=== PATIENT | female | born 1965 | race Two or more races ===

== ENCOUNTER → 2022-10-17 13:26 | Outpatient (BNVA) | payer OTHER, SELFPAY | PROVIDERS: PCP Internal Medicine; Visit Provider Physician Assistant Surgical ==

== ENCOUNTER → 2022-11-06 13:05 | Outpatient (BNVA) | payer OTHER, SELFPAY | PROVIDERS: PCP Internal Medicine; Visit Provider Physician Assistant Surgical | DX: E66.9 Obesity, unspecified (principal); Z68.35 Body mass index [BMI] 35.0-35.9, adult | CPT/HCPCS: 99202 ==

== ENCOUNTER → 2022-11-15 14:50 | Outpatient (BNVA) | payer OTHER, SELFPAY | PROVIDERS: PCP Internal Medicine; Visit Provider Counselor Mental Health ==

== ENCOUNTER 2022-11-19 09:25 | Outpatient (REF) | payer OTHER, SELFPAY ==
--- NOTE | ~2022-11-19 | XR_ITS ---
EXAMINATION: XR CHEST CLINICAL INFORMATION: Obesity COMPARISON: None available. TECHNIQUE: 2 views of the chest were obtained. FINDINGS: The cardiac and mediastinal contours are normal. There is minimal linear subsegmental atelectasis or scarring at the left lung base. The lungs are otherwise clear. No pleural effusion or pneumothorax. Degenerative changes of the spine. XR/XR chest 2V IMPRESSION: Linear scarring or subsegmental atelectasis at the left lung base.
[2022-11-19 09:49] LABS: MANUAL DIFF FLAG NO
--- NOTE | 2022-11-19 09:56 | ECG_ITS ---
Test Reason : OBESITY Blood Pressure : / mmHG Vent. Rate : 080 BPM Atrial Rate : 080 BPM P-R Int : 160 ms QRS Dur : 074 ms QT Int : 398 ms P-R-T Axes : 048 -19 027 degrees QTc Int : 459 ms Normal sinus rhythm Nonspecific ST and T wave abnormality Borderline ECG No previous ECGs available Referred By: William Almanza Electronically Signed By:FRANCISCO BASURTO
[2022-11-19 10:22] LABS: Basophils Percent Auto 0.4 % (0-2); Eosinophils Absolute Auto 0.3 X10*3/uL (0.0-0.4); Eosinophils Percent Auto 4.3 % (0-4); Hematocrit 39.6 % (37.0-47.0); Hemoglobin 13.4 g/dl (12.0-16.0); Imm Gran Abs Auto 0.02 X10*3/uL (0.00-0.03); Imm Gran Pct Auto 0.3 % (0.0-0.4); Lymphocytes Absolute Auto 2.9 X10*3/uL (1.2-4.9); Lymphocytes Percent Auto 36.8 % (20-40); Mean Corpuscular HGB Conc 33.8 g/dl (31.0-35.0); Mean Corpuscular Hemoglobin 30.5 pg (27.0-33.0); Mean Platelet Volume 9.3 fL (9.4-12.3); Monocytes Absolute Auto 0.6 X10*3/uL (0.1-1.2); Monocytes Percent Auto 7.2 % (2-11); Platelet Count 276 X10*3/uL (160-400); Red Cell Distribution Width 11.6 % (11.0-16.0); White Blood Count 7.9 X10*3/uL (4.8-10.8)
[2022-11-19 10:34] LABS: Estimated Average Glucose 143 mg/dL; Hemoglobin A1c % 6.6 %
[2022-11-19 11:12] LABS: Alanine Aminotransferase 25 U/L (0-31); Albumin Level 4.3 g/dL (3.5-5.0); Alkaline Phosphatase 56 U/L (39-117); Anion Gap 15 (12-20); Aspartate Amino Transferase 21 U/L (5-31); Bilirubin Total 0.4 mg/dL (0.0-1.0); Blood Urea Nitrogen 15 mg/dL (9-16); C Reactive Protein 0.57 mg/dL (< or = 0.50); Calcium 9.6 mg/dL (8.4-10.2); Carbon Dioxide 24 mmol/L (22-29); Chloride 103 mmol/L (96-108); Cholesterol 220 mg/dL; Estimated Glomerular Filt Rate > 60; Glucose Random 147 mg/dL (60-115); HDL Cholesterol 62 mg/dL; Iron 113 mcg/dL (30-160); LDL Cholesterol Calculated 117 mg/dl; Percent Iron Saturation 38 % (15-50); Potassium 4.4 mmol/L (3.3-5.1); Sodium 138 mmol/L (135-145); Total Iron Binding Capacity 297 mcg/dL (228-428); Total Protein 7.2 g/dL (6.5-8.0); Triglycerides 206 mg/dL; Unsaturated Iron Binding 184 ug/dL
[2022-11-19 11:27] LABS: Ferritin 147 ng/mL (10-250); Folate 16.5 ng/mL (> or = 4.0); Insulin 9 uU/mL (2-29); TSH reflex Free T4 1.65 uIU/mL (0.32-4.0); Vitamin B12 277 pg/mL (200-900); Vitamin D 25-OH Total 12.2 ng/mL (>30)
[2022-11-20 14:09] LABS: Calcium (PTHI) 9.3 mg/dL (8.6-10.4); PTHI 33 pg/mL (16-77)
[2022-11-26 14:33] LABS: Vitamin B1 <6 nmol/L (8-30)
[2022-11-26 15:19] LABS: Zinc 81 mcg/dL (60-130)
[2022-11-27 11:43] LABS: Vitamin A 45 mcg/dL (38-98)
== END 2022-11-19 09:26 | disposition home or self-care (01) ==
LOC: HO.LAB 09:25
PROVIDERS: PCP Internal Medicine; Visit Provider Physician Assistant Surgical
DX: E66.9 Obesity, unspecified (principal); I10 Essential (primary) hypertension; E78.00 Pure hypercholesterolemia, unspecified; E11.9 Type 2 diabetes mellitus without complications
CPT/HCPCS: 36415; 71046; 80053; 80061; 82306; 82607; 82728; 82746; 83036; 83525; 83540; 83970; 84425; 84443; 84590; 84630; 85025; 86140; 93005

== ENCOUNTER 2022-11-27 15:25 | Outpatient (REF) | payer OTHER, SELFPAY ==
[2022-11-28 11:16] LABS: H Pylori Breath Test Negative (Negative)
== END 2022-11-27 15:26 | disposition home or self-care (01) ==
LOC: HO.LNP 15:25
PROVIDERS: PCP Internal Medicine; Referring Provider Internal Medicine; Visit Provider Physician Assistant Surgical
DX: E66.9 Obesity, unspecified (principal); E11.9 Type 2 diabetes mellitus without complications; E78.00 Pure hypercholesterolemia, unspecified; I10 Essential (primary) hypertension; Z71.3 Dietary counseling and surveillance; Z79.899 Other long term (current) drug therapy
CPT/HCPCS: 83013; 99211; 99212

== ENCOUNTER 2024-10-26 00:46 | Emergency (ER) | payer OTHER, SELFPAY ==
[2024-10-26 00:52] VITALS: BP 118/55; PULSE 81; RESP 18; TEMP 36.7; O2SAT 96; BMI 34.0
--- NOTE | 2024-10-26 01:25 | ED_ITS ---
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 No other new exposures, no hx of allergies. She has no oral swelling n/v. She tried topical benadryl with some relief. She reports she cannot sleep due to itching. MD complaint: allergic reaction and hives Onset (ago): hour(s) (several ) Exposure: other (after trying on clothes) Symptoms: rash and itching Severity: moderate Treatment prior to arrival: other (topical benadryl) Previous Allergic Reaction History: none Related Data Home Medications ?Medication ?Instructions ?Recorded ?Confirmed bupropion HCl 300 mg 24 hr tablet, 300 mg PO DAILY 10/17/22 11/27/22 extended release clonazepam 1 mg tablet 1 mg PO BEDTIME PRN 10/17/22 11/27/22 lisinopril 5 mg tablet 5 mg PO DAILY 10/17/22 11/27/22 metformin 500 mg tablet,extended 500 mg PO DAILY 10/17/22 11/27/22 release 24 hr montelukast 10 mg tablet 10 mg PO DAILY 10/17/22 11/27/22 sertraline 100 mg tablet mg PO 10/17/22 11/27/22 simvastatin 40 mg tablet 40 mg PO BEDTIME 10/17/22 11/27/22 trazodone 150 mg tablet 150 mg PO BEDTIME 10/17/22 11/27/22 Previous Rx's ?Medication ?Instructions ?Recorded cholecalciferol (vitamin D3) 125 125 mcg PO DAILY 90 days #90 caps 11/19/22 mcg (5,000 unit) capsule cyanocobalamin (vitamin B-12) 500 500 mcg PO DAILY 90 days #90 tabs 11/19/22 mcg tablet thiamine HCl (vitamin B1) 100 mg 100 mg PO DAILY 90 days #90 tabs 11/26/22 tablet cetirizine 10 mg tablet (Allergy 10 mg PO DAILY #20 tabs 10/26/24 Relief (cetirizine)) famotidine 20 mg tablet (Pepcid) 20 mg PO DAILY abdominal 10/26/24 discomfort #10 tabs hydrocortisone 1 % topical cream 1 appl topical TID PRN rash 7 days 10/26/24 (Cortisone (hydrocortisone)) #28.35 grams hydroxyzine HCl 25 mg tablet 25 mg PO TID PRN itching #20 tabs 10/26/24 prednisone 20 mg tablet 40 mg (2 x 20 mg) PO DAILY 4 days 10/26/24 #8 tabs Allergies Allergy/AdvReac Type Severity Reaction Status Date / Time No Known Allergies Allergy Verified 10/26/24 00:54 Review of Systems Review of Systems: Constitutional : No Fever, No Chills ENT/Mouth : no oral swelling, No Hoarseness, No Swallowing Difficulty Eyes: No Eye Pain, No Swelling, No Redness Cardiovascular : No Chest Pain, No SOB Respiratory : No Cough, No Sputum, No Wheezing, No Dyspnea Gastrointestinal : No Nausea, No Vomiting, No Diarrhea, No abdominal Pain Genitourinary : No Dysuria, No Urinary Frequency, No Hematuria Musculoskeletal : No joint pain, No Myalgias, No Joint Swelling Skin : No Skin Lesions, positive rash Neuro : No Weakness, No Numbness, No Headache Psych : No Anxiety/Panic, No Depression All other systems reviewed and are negative [facility] Past Medical History Attestation statement: The following information was validated with the patient. Source: old records reviewed Medical History (Updated 10/26/24 @ 01:40 by Poonam Goodman DO) Diabetes HTN (hypertension) Hypercholesterolemia Surgical History History of surgery on lower extremity Family History Family History Mother Mental health disorder Father No problems noted. Daughter No problems noted. Son No problems noted. Social History Social History Alcohol intake: never Patient Tobacco Use Status: Current everyday Tobacco user Cigarettes Per Day: 4 Physical Exam ED Vital Signs: Vital Signs - 24 hr 10/26/24 00:52 Temperature 98.1 F Pulse Rate 81 Respiratory Rate 18 Blood Pressure 118/55 L Pulse Oximetry 96 Oxygen Delivery Method Room Air BMI result Body Mass Index 34.0 Appearance: Alert. Oriented X3. No acute distress. Eyes: Pupils equal, round and reactive to light. ENT: Pharynx normal. no swelling Neck: Normal inspection. Neck supple. CVS: Normal heart rate and rhythm. Pulses normal. Respiratory: No respiratory distress. Breath sounds normal. Abdomen: Soft and nontender. Skin: Skin warm and dry. Normal skin color. diffuse red pink raised papules on arms, legs, trunk there are no bite areas seen and nothing in webspaced Extremities: No lower extremity edema. No calf ttp Neuro: Oriented X 3. No motor deficit. No sensory deficit. CN2-12 intact Medical Decision Making Medical Decision Making [facility] Narrative: 58 yo female with PMH of HTN, HLD, DM here with c/o itching rash all over after trying on clothes - there are no signs of bites. She has no airway or resp issues at this time appears like a contact dermatitis will start on meds and refer to return for any worsening symptoms. She is aware her sugars need to be monitored while on medications Differential Diagnosis Differential Diagnoses: The differential diagnosis associated with the presentation includes allergy, dermatitis Admission/Observation Consideration of admission/observation: Escalation of care including admission/observation considered improved, stable for DC External Record Review External record reviewed: Outpatient record Prescription Management I considered prescription management with: Other Discharge Plan Discharge Clinical Impression: Contact dermatitis Qualifiers: Contact dermatitis type: allergic Contact dermatitis trigger: unspecified trigger Qualified Code(s): L23.9 - Allergic contact dermatitis, unspecified cause Patient Disposition: Home, Self-Care Instructions: Contact Dermatitis (ED) Additional Instructions: continue medications as prescribed return for worsening symptoms or concerns take a shower with mild soap like dove monitor your blood sugars with the prednisone Prescriptions: New prednisone 20 mg tablet 40 mg PO DAILY 4 Days Qty: 8 0RF famotidine [Pepcid] 20 mg tablet 20 mg PO DAILY Qty: 10 0RF hydroxyzine HCl 25 mg tablet 25 mg PO TID PRN (Reason: itching) Qty: 20 0RF cetirizine [Allergy Relief (cetirizine)] 10 mg tablet 10 mg PO DAILY Qty: 20 0RF hydrocortisone [Cortisone (hydrocortisone)] 1 % cream 1 appl topical TID PRN (Reason: rash) 7 Days Qty: 28.35 0RF No Action cholecalciferol (vitamin D3) 125 mcg (5,000 unit) capsule 125 mcg PO DAILY 90 Days Qty: 90 1RF cyanocobalamin (vitamin B-12) 500 mcg tablet 500 mcg PO DAILY 90 Days Qty: 90 0RF thiamine HCl (vitamin B1) 100 mg tablet 100 mg PO DAILY 90 Days Qty: 90 0RF metformin 500 mg tablet extended release 24 hr 500 mg PO DAILY simvastatin 40 mg tablet 40 mg PO BEDTIME montelukast 10 mg tablet 10 mg PO DAILY lisinopril 5 mg tablet 5 mg PO DAILY clonazepam 1 mg tablet 1 mg PO BEDTIME PRN sertraline 100 mg tablet PO trazodone 150 mg tablet 150 mg PO BEDTIME bupropion HCl 300 mg tablet extended release 24 hr 300 mg PO DAILY Print Language: Maldivian
[2024-10-26] MEDS: predniSONE 20 MG TABLET 40 MG PO (01:28)
[2024-10-26] MEDS: hydrOXYzine HCL 50 MG TABLET PO (01:28)
[2024-10-26 03:26] VITALS: BP 119/76; PULSE 71; RESP 16; TEMP 36.7; O2SAT 96
[2024-10-26 04:13] VITALS: BP 119/76; PULSE 71; RESP 16; TEMP 36.7; O2SAT 96
== END 2024-10-26 04:19 | disposition home or self-care (01) ==
PROVIDERS: Emergency Provider Emergency Medicine; PCP Internal Medicine
DX: L23.9 Allergic contact dermatitis, unspecified cause (principal); R21 Rash and other nonspecific skin eruption; I10 Essential (primary) hypertension; E11.9 Type 2 diabetes mellitus without complications
CPT/HCPCS: 99283; 99284